=== PATIENT | male | born 1950 | race American Indian/Alaskan Native ===

== ENCOUNTER 2016-11-11 13:42 | Emergency (ER) | payer SELFPAY ==
[2016-11-11] MEDS ORDERED: ASPIRIN PO ONE (14:29)
[2016-11-11] MEDS ORDERED: ALUM-MAG HYDROX-SIMETH 200-200-20MG/5ML PO ONE (14:31)
[2016-11-11] MEDS ORDERED: LIDOCAINE VISCOUS 2% PO ONE (14:31)
--- NOTE | 2016-11-11 14:40 | Emergency Department Report ---
Entered by HELENA ODOM, acting as scribe for VERA MEDELLIN NP. Chief Complaint: Chest Pain Stated Complaint: CHEST PAIN Time Seen by Provider: 11/11/16 14:26 - HPI History of Present Illness: Pt c/o right sided chest pain that began today. Pt states the pain radiates to abdomen. Negative for back pain. Negative for dizziness. Uses tobacco products (40pck/yr) and consumes EtOH (beer) daily. PMHx of HTN and IDDM - ROS Review of Systems: All system are negative unless stated in HPI above. - Exam Vital Signs: Vital Signs 11/11/16 14:05 Temperature 98.1 F Pulse Rate 86 Respiratory 16 Rate Blood Pressure 148/77 O2 Sat by Pulse 98 Oximetry Physical Exam: General: well nourished, well developed, 66 year old male in no acute distress and nontoxic in appearance Respiratory: normal lung sounds bilaterally. No respiratory distress. No rhonchi , wheezes, or rales Cardiovascular: Regular rate, normal rhythm. No systolic murmur, diastolic murmur, rubs, or gallop MSE screening note: Focused history and physical exam performed. Due to findings the following was ordered: See above ED Medical Decision Making - EKG Data EKG shows normal: sinus rhythm Rate: normal - Medical Decision Making Patient screened by provider in triage area. EKG shows normal sinus rhythm with a possible left atrial enlargement. Troponin, CBC, UA , and other labs will sent in for patient. Patient will be given a GI cocktail and an aspirin in triage. Patient sent to be seen by MD on main ED side. ED Disposition for MSE Condition: Stable This documentation as recorded by the scribe,HELENA ODOM,accurately reflects the service I personally performed and the decisions made by , VERA MEDELLIN NP.
[2016-11-11 15:05] LABS: Basophils % (Auto) 0.6 % (0.0-1.8); Eosinophils % (Auto) 2.1 % (0.0-4.3); Hematocrit 44.1 % (35.5-45.6); Hemoglobin 14.5 gm/dl (11.8-15.2); Mean Corpuscular HGB Conc 33 % (32-34); Mean Corpuscular Hemoglobin 30 pg (28-32); Mean Corpuscular Volume 90 fl (84-94); Platelet Count 233 K/mm3 (140-440); Red Blood Count 4.91 M/mm3 (3.65-5.03); Red Cell Distribution Width 14.8 % (13.2-15.2); White Blood Count 10.3 K/mm3 (4.5-11.0)
--- NOTE | 2016-11-11 15:11 | XRay Report ---
CHEST 2 VIEWS INDICATION: Chest pain. COMPARISON: None similar at this institution. FINDINGS: PA and lateral chest radiographs demonstrate normal cardiomediastinal silhouette. Clear lungs. Bilateral AC joint degenerative changes. CONCLUSION: No acute disease in the chest. Thank you for the opportunity to participate in this patient's care.
[2016-11-11 15:15] LABS: INR 1.02 (0.87-1.13)
[2016-11-11 15:16] LABS: Partial Thromboplastin Time 29.3 Sec. (24.2-36.6)
[2016-11-11 15:19] LABS: Alanine Aminotransferase 14 units/L (7-56); Albumin 4.2 g/dL (3.9-5); Albumin/Globulin Ratio 1.4 %; Alkaline Phosphatase 82 units/L (35-129); Anion Gap 20 mmol/L; Blood Urea Nitrogen 9 mg/dL (9-20); Calcium 9.1 mg/dL (8.4-10.2); Carbon Dioxide 25 mmol/L (22-30); Chloride 101.1 mmol/L (98-107); Glucose 192 mg/dL (75-100); Potassium 3.6 mmol/L (3.6-5.0); Sodium 142 mmol/L (137-145); Total Protein 7.2 g/dL (6.3-8.2)
[2016-11-11 16:19] LABS: Bilirubin,Urine NEG (Negative); Blood,Urine NEG (Negative); Ketones,Urine NEG (Negative); Leukocyte Esterase,Urine LG (Negative); Mucus,Urine FEW /HPF; Nitrite,Urine NEG (Negative); Protein,Urine <15 mg/dL mg/dL (Negative); Urobilinogen,Urine < 2.0 mg/dL (<2.0)
[2016-11-11] MEDS ORDERED: BABY ASPIRIN PO ONE (23:15)
[2016-11-11] MEDS ORDERED: CARAFATE PO ONE (23:16)
[2016-11-11] MEDS ORDERED: PEPCID PO ONE (23:16)
--- NOTE | 2016-11-11 23:20 | Emergency Department Report ---
ED Chest Pain HPI - General Chief Complaint: Chest Pain Stated Complaint: CHEST PAIN Time Seen by Provider: 11/11/16 14:28 Source: patient Mode of arrival: Ambulatory Limitations: No Limitations - History of Present Illness Initial Comments: Pt is a 66 yr old male with a h/o DM who presents with chest pain. Pt reports this morning while he was at work he has some epigastric pain which radiated into his chest. Pt reports it has subsided significantly, but he occasionally still feels mild discomfort in the same area. Pt sees his PMD regularly and was recently given metforming for DM II. He smokes a pack a day, but otherwise healthy. Pt denies any fevers, chills, RDZ, dizziness, radiation, diaphoresis, neck pain, jaw pain, arm pain, paresthesias, NVD, abd pain, SOB, travel, or sick contacts. Severity scale (0 -10): 5 - Related Data Previous Rx's Medication Instructions Recorded Last Taken Type Cefdinir 300 mg PO BID #14 capsule 11/12/16 Unknown Rx Famotidine [Pepcid] 20 mg PO BID #30 tablet 11/12/16 Unknown Rx Sucralfate [Carafate] 1 gm PO ONCE PRN #1 oral.liqd 11/12/16 Unknown Rx Allergies Allergy/AdvReac Type Severity Reaction Status Date / Time No Known Allergies Allergy Verified 11/11/16 23:18 RAJIV score - Rajiv Score Age > 65: (0) No Aspirin use within the Past 7 Days: (0) No 3 or more CAD Risk Factors: (0) No 2 or more Angina events in past 24 hrs: (0) No Known CAD with more than 50% Stenosis: (0) No Elevated Cardiac Markers: (0) No ST Deviation Greater than 0.5mm: (0) No RAJIV Score: 0 ED Review of Systems ROS: Stated complaint: CHEST PAIN Other details as noted in HPI Comment: All other systems reviewed and negative ED Past Medical Hx - Past Medical History Previous Medical History?: Yes Hx Hypertension: Yes Hx Diabetes: Yes - Surgical History Past Surgical History?: No - Social History Smoking Status: Current Every Day Smoker Substance Use Type: Alcohol - Medications Home Medications: Home Medications Medication Instructions Recorded Confirmed Last Taken Type Cefdinir 300 mg PO BID #14 capsule 11/12/16 Unknown Rx Famotidine [Pepcid] 20 mg PO BID #30 tablet 11/12/16 Unknown Rx Sucralfate [Carafate] 1 gm PO ONCE PRN #1 oral.liqd 11/12/16 Unknown Rx ED Physical Exam - General Limitations: No Limitations General appearance: alert, in no apparent distress - Head Head exam: Present: atraumatic, normocephalic - Eye Eye exam: Present: normal appearance - ENT ENT exam: Present: mucous membranes moist - Neck Neck exam: Present: normal inspection - Respiratory Respiratory exam: Present: normal lung sounds bilaterally, chest wall tenderness. Absent: respiratory distress, wheezes, rales, rhonchi, stridor, accessory muscle use - Cardiovascular Cardiovascular Exam: Present: regular rate, normal rhythm, normal heart sounds. Absent: irregular rhythm, systolic murmur, diastolic murmur, rubs, gallop - GI/Abdominal GI/Abdominal exam: Present: soft, tenderness (epigastrium), normal bowel sounds. Absent: distended, guarding, rebound, rigid - Rectal Rectal exam: Present: deferred - Extremities Exam Extremities exam: Present: normal inspection - Back Exam Back exam: Present: normal inspection - Neurological Exam Neurological exam: Present: alert, oriented X3 - Psychiatric Psychiatric exam: Present: normal affect, normal mood - Skin Skin exam: Present: warm, dry, intact, normal color. Absent: rash ED Course Vital Signs 11/11/16 11/11/16 11/11/16 14:05 21:03 23:34 Temperature 98.1 F 97.8 F 98.2 F Pulse Rate 86 64 82 Respiratory 16 18 14 Rate Blood Pressure 148/77 154/77 Blood Pressure 152/88 [Left] O2 Sat by Pulse 98 98 97 Oximetry ED Medical Decision Making - Lab Data Result diagrams: 11/11/16 14:38 11/11/16 14:38 - EKG Data -: EKG Interpreted by Tn - EKG Data 11/11/16 13:55 Normal sinus rhythm at 82 bpm, QTC 397 ms, normal axis, no LVH, left atrial enlargement, no ST changes, no STEMI - Radiology Data Radiology results: report reviewed, image reviewed CXR: No acute cardiopulmonary findings. - Medical Decision Making Given patient has pain radiating up into the chest from the epigastrium, troponin negative x 2 after weeks of pain, likely source of pain from the GI system. Pt given pepcid and carafate. Will discharge home with pepcid and carafate. Pt to follow up with his PMD. Instructed the patient if his chest pain worsens to return to the ED immediately. Critical care attestation.: If time is entered above; I have spent that time in minutes in the direct care of this critically ill patient, excluding procedure time. ED Disposition Clinical Impression: Chest pain, Epigastric pain, UTI (urinary tract infection) Disposition: TO HOME OR SELFCARE Is pt being admited?: No Condition: Stable Instructions: Chest Pain (ED), Abdominal Pain (ED), Urinary Tract Infection in Men (ED) Prescriptions: Cefdinir 300 mg PO BID #14 capsule Famotidine [Pepcid] 20 mg PO BID #30 tablet Sucralfate [Carafate] 1 gm PO ONCE PRN #1 oral.liqd PRN Reason: Pain Referrals: CHRISTOPHER FITZGERALD MD [Primary Care Provider] - 3-5 Days
[2016-11-12 01:03] VITALS: BP 158/92
== END 2016-11-12 01:03 | disposition home or self-care (01) ==
LOC: ED 13:42
DX: N39.0 Urinary tract infection, site not specified (principal); R07.9 Chest pain, unspecified; I10 Essential (primary) hypertension; E11.9 Type 2 diabetes mellitus without complications; F17.200 Nicotine dependence, unspecified, uncomplicated
CPT/HCPCS: 36415; 71020; 80053; 81001; 84484; 85025; 85610; 85730; 93005; 93010; 99284

== ENCOUNTER 2021-02-28 09:11 | Emergency (ER) | payer SELFPAY ==
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
[2021-02-28 11:30] VITALS: BP 143/83
== END 2021-02-28 11:25 | disposition home or self-care (01) ==
LOC: ED 09:11
DX: S16.1XXA Strain of muscle, fascia and tendon at neck level, initial encounter (principal); S39.012A Strain of muscle, fascia and tendon of lower back, initial encounter; I10 Essential (primary) hypertension; E11.9 Type 2 diabetes mellitus without complications; Z72.89 Other problems related to lifestyle; F17.200 Nicotine dependence, unspecified, uncomplicated; Z79.899 Other long term (current) drug therapy; V89.2XXA Person injured in unspecified motor-vehicle accident, traffic, initial encounter; Y93.89 Activity, other specified; Y92.488 Other paved roadways as the place of occurrence of the external cause; Y99.8 Other external cause status
CPT/HCPCS: 99282